=== PATIENT | male | born 1960 | race Caucasian/White ===

== ENCOUNTER 2020-05-05 14:52 | Emergency (ER) | payer BC, OTHER | END 2020-05-05 16:55 | disposition home or self-care (01) | LOC: ER1 14:52 | DX: S01.111A Laceration without foreign body of right eyelid and periocular area, initial encounter (principal); F17.200 Nicotine dependence, unspecified, uncomplicated; Z23 Encounter for immunization; W00.0XXA Fall on same level due to ice and snow, initial encounter; Y92.009 Unspecified place in unspecified non-institutional (private) residence as the place of occurrence of the external cause | CPT/HCPCS: 12013; 90471; 90715; 99283 ==

== ENCOUNTER 2021-01-17 15:30 | Emergency (ER) | payer BC ==
[~2021-01-17] VITALS: Ht 175.3 cm; Wt 88.5 kg
== END 2021-01-17 19:00 | disposition home or self-care (01) ==
LOC: ER1 15:30
DX: U07.1 COVID-19 (principal); Z23 Encounter for immunization; F17.210 Nicotine dependence, cigarettes, uncomplicated; Z87.442 Personal history of urinary calculi
CPT/HCPCS: 99283; M0243

== ENCOUNTER 2021-07-29 16:49 | Emergency (ER) | payer BC ==
[2021-07-29 18:15] LABS: HEMOGLOBIN 15.8 gm/dl (14.0-17.5); RED BLOOD COUNT 5.76 M/UL (4.20-5.50); WHITE BLOOD COUNT 6.6 K/UL (4.5-11.0)
[2021-07-29 18:30] LABS: BUN/CREATININE RATIO 17 (0-10)
[2021-07-29] MEDS ORDERED: GLUCOPHAGE 500500 MG PO (20:24)
[2021-07-29] MEDS ORDERED: COLACE 100MG C100 MG PO (20:24)
== END 2021-07-29 20:49 | disposition home or self-care (01) ==
LOC: ER1 16:49
PROVIDERS: Physician Assistant
DX: K62.89 Other specified diseases of anus and rectum (principal); I10 Essential (primary) hypertension; F17.200 Nicotine dependence, unspecified, uncomplicated; E11.9 Type 2 diabetes mellitus without complications
CPT/HCPCS: 80053; 81001; 85025; 99284; J7030; Q9967

== ENCOUNTER → 2021-11-16 | Outpatient (CLI) | payer BC ==
[~2021-11-16] MED LIST: COLACE 100MG C100 MG PO; GLUCOPHAGE 500500 MG PO
[2021-11-16 08:42] LABS: BUN/CREATININE RATIO 17 (0-10)
== END ==
LOC: LAB 07:38
PROVIDERS: Family Medicine
DX: E11.65 Type 2 diabetes mellitus with hyperglycemia (principal)
CPT/HCPCS: 36415; 80053; 80061; 83036

== ENCOUNTER → 2021-12-05 | Outpatient (CLI) | payer BC ==
[2021-12-05 09:19] LABS: HEMOGLOBIN 15.4 gm/dl (14.0-17.5); RED BLOOD COUNT 5.53 M/UL (4.20-5.50); WHITE BLOOD COUNT 9.7 K/UL (4.5-11.0)
[2021-12-05 09:41] LABS: BUN/CREATININE RATIO 22 (0-10)
== END ==
LOC: LAB 09:00
PROVIDERS: Surgery
DX: Z86.010 Personal history of colon polyps (principal)
CPT/HCPCS: 71046; 80048; 85025; 93005